=== PATIENT | female | born 1975 | race Caucasian/White ===

== ENCOUNTER → 2017-10-28 | Outpatient (REF) ==
[2017-10-29 10:12] LABS: RUBEOLA IgG ANTIBODY >300.0 AU/mL (Immune >29.9)
== END ==
LOC: M LAB 09:39
DX: Z02.1 Encounter for pre-employment examination (principal)

== ENCOUNTER 2017-12-30 09:22 | Emergency (ER) | payer OTHER, MEDICAID ==
[2017-12-30 10:22] LABS: KETONE, URINE AUTO RFX NEGATIVE (NEGATIVE); LEUKOCYTE ESTERASE UR AUTO RFX NEGATIVE (NEGATIVE); NITRITE, URINE AUTO RFX NEGATIVE (NEGATIVE); RBC, URINE AUTO RFX 0 /HPF (0-3); SPECIFIC GRAVITY UR AUTO RFX 1.004 (1.002-1.035); SQUAM EPITHELIAL CELL UR AURFX 0 /HPF (0-6); WBC, URINE AUTO RFX 0 /HPF (0-3)
[2017-12-30] MEDS: KETOROLAC 30 MG/ML VIAL (J1885) IV (10:22)
[2017-12-30] MEDS: ONDANSETRON 4MG/2ML VIAL (J2405) IV (10:22)
[2017-12-30] MEDS: GI COCKTAIL 50ML BTL(HYOSCYAMINE/MAALOX/LIDOCAINE VISCOUS)(1:3:1) PO (10:22)
[2017-12-30] MEDS: NS 1,000 ML IV (10:23)
[2017-12-30 10:42] LABS: BASO % 0.1 % (0.0-1.0); EOS % 0.1 % (0.0-3.0); HEMATOCRIT 39.5 % (36.0-47.0); HEMOGLOBIN 13.8 g/dl (12.0-15.5); IMMATURE GRANULOCYTE % 0.3 % (0-3.0); LYMPH # 0.8 10^3/uL (1.5-4.5); LYMPH % 11.2 % (24.0-44.0); MEAN CORPUSCULAR HEMOGLOBIN 31.3 pg (27.0-33.0); MEAN CORPUSCULAR HGB CONC 34.9 g/dl (32.0-36.5); MEAN CORPUSCULAR VOLUME 89.6 fl (80.0-96.0); MONO # 0.2 10^3/uL (0.0-0.8); MONO % 2.6 % (0.0-5.0); NEUTROPHILS # 6.2 10^3/uL (1.8-7.7); NEUTROPHILS % 85.7 % (36.0-66.0); PLATELET COUNT, AUTOMATED 224 10^3/uL (150-450); RED BLOOD COUNT 4.41 10^6/uL (4.00-5.40); RED CELL DISTRIBUTION WIDTH 12.2 % (11.5-14.5); WHITE BLOOD COUNT 7.3 10^3/uL (4.0-10.0)
[2017-12-30 11:01] LABS: ALBUMIN 3.6 GM/DL (3.2-5.2); ALBUMIN/GLOBULIN RATIO 0.97 (1.00-1.93); ALKALINE PHOSPHATASE 62 U/L (45-117); ALT/SGPT 13 U/L (12-78); ANION GAP 8 MEQ/L (8-16); AST/SGOT 11 U/L (7-37); BILIRUBIN,DIRECT < 0.1 MG/DL (0.0-0.2); BILIRUBIN,TOTAL 0.4 MG/DL (0.2-1.0); BLOOD UREA NITROGEN 9 MG/DL (7-18); CALCIUM LEVEL 8.5 MG/DL (8.5-10.1); CARBON DIOXIDE LEVEL 25 MEQ/L (21-32); CHLORIDE LEVEL 110 MEQ/L (98-107); CREATININE FOR GFR 0.68 MG/DL (0.55-1.30); GLOMERULAR FILTRATION RATE > 60.0 (>58); GLUCOSE, FASTING 99 MG/DL (70-100); LIPASE 64 U/L (73-393); POTASSIUM SERUM 3.6 MEQ/L (3.5-5.1); SODIUM LEVEL 143 MEQ/L (136-145); TOTAL PROTEIN 7.3 GM/DL (6.4-8.2)
[2017-12-30 11:14] LABS: CONTROL LINE HCG INT CTR LINE PRESENT; HCG, SERUM QUALITATIVE NEGATIVE (NEGATIVE)
== END 2017-12-30 11:35 | disposition home or self-care (01) ==
LOC: M ED 09:22
DX: K29.70 Gastritis, unspecified, without bleeding (principal); A04.8 Other specified bacterial intestinal infections; R51 Headache; Z79.899 Other long term (current) drug therapy; Z79.2 Long term (current) use of antibiotics
CPT/HCPCS: J2405

== ENCOUNTER 2018-01-18 14:14 | Emergency (ER) | payer OTHER ==
[2018-01-18 15:21] LABS: KETONE, URINE AUTO RFX NEGATIVE (NEGATIVE); LEUKOCYTE ESTERASE UR AUTO RFX NEGATIVE (NEGATIVE); MUCUS, URINE RFX SMALL (NEGATIVE); NITRITE, URINE AUTO RFX NEGATIVE (NEGATIVE); RBC, URINE AUTO RFX 0 /HPF (0-3); SPECIFIC GRAVITY UR AUTO RFX 1.016 (1.002-1.035); SQUAM EPITHELIAL CELL UR AURFX 2 /HPF (0-6); WBC, URINE AUTO RFX 0 /HPF (0-3)
[2018-01-18 15:41] LABS: BASO % 0.3 % (0.0-1.0); EOS % 0.6 % (0.0-3.0); HEMATOCRIT 42.4 % (36.0-47.0); HEMOGLOBIN 14.2 g/dl (12.0-15.5); IMMATURE GRANULOCYTE % 0.5 % (0-3.0); LYMPH # 1.9 10^3/uL (1.5-4.5); LYMPH % 29.4 % (24.0-44.0); MEAN CORPUSCULAR HEMOGLOBIN 31.1 pg (27.0-33.0); MEAN CORPUSCULAR HGB CONC 33.5 g/dl (32.0-36.5); MEAN CORPUSCULAR VOLUME 92.8 fl (80.0-96.0); MONO # 0.4 10^3/uL (0.0-0.8); MONO % 6.2 % (0.0-5.0); NEUTROPHILS # 4.2 10^3/uL (1.8-7.7); PLATELET COUNT, AUTOMATED 234 10^3/uL (150-450); RED BLOOD COUNT 4.57 10^6/uL (4.00-5.40); RED CELL DISTRIBUTION WIDTH 12.2 % (11.5-14.5); WHITE BLOOD COUNT 6.6 10^3/uL (4.0-10.0)
[2018-01-18] MEDS: NS 1,000 ML IV (15:47)
[2018-01-18] MEDS: MORPHINE 4 MG/ML 1ML VIAL/SYRINGE (J2270) IV ×2 (15:47→18:09)
[2018-01-18 16:01] LABS: ALBUMIN 3.9 GM/DL (3.2-5.2); ALKALINE PHOSPHATASE 78 U/L (45-117); ALT/SGPT 27 U/L (12-78); ANION GAP 7 MEQ/L (8-16); AST/SGOT 12 U/L (7-37); BILIRUBIN,DIRECT 0.1 MG/DL (0.0-0.2); BILIRUBIN,TOTAL 0.5 MG/DL (0.2-1.0); BLOOD UREA NITROGEN 13 MG/DL (7-18); CALCIUM LEVEL 8.8 MG/DL (8.5-10.1); CARBON DIOXIDE LEVEL 29 MEQ/L (21-32); CHLORIDE LEVEL 106 MEQ/L (98-107); CREATININE FOR GFR 0.67 MG/DL (0.55-1.30); GLOMERULAR FILTRATION RATE > 60.0 (>58); GLUCOSE, FASTING 92 MG/DL (70-100); LIPASE 96 U/L (73-393); POTASSIUM SERUM 4.1 MEQ/L (3.5-5.1); SODIUM LEVEL 142 MEQ/L (136-145); TOTAL PROTEIN 7.8 GM/DL (6.4-8.2)
[2018-01-18] MEDS ORDERED: ISOVUE-370 76% 100ML VIAL (Q9967) As Ordered (16:14)
== END 2018-01-18 19:50 | disposition home or self-care (01) ==
LOC: M ED 14:14
DX: N83.202 Unspecified ovarian cyst, left side (principal)
CPT/HCPCS: J2270

== ENCOUNTER → 2018-01-24 | Outpatient (CLI) | payer OTHER ==
[2018-01-24 18:48] LABS: FREE T4 1.06 NG/DL (0.76-1.46)
[2018-01-26 15:06] LABS: TISSUE TRANSGLUTAMINASE IgA <2 U/mL (0-3)
== END ==
LOC: M LAB 17:09
DX: R19.7 Diarrhea, unspecified (principal)
CPT/HCPCS: 84443

== ENCOUNTER → 2018-01-25 | Outpatient (REF) | payer OTHER | LOC: M LAB REF 09:36 | DX: R19.7 Diarrhea, unspecified (principal) | CPT/HCPCS: 87507 ==

== ENCOUNTER → 2018-02-10 | Outpatient (CLI) | payer OTHER | LOC: M RAD 16:46 | DX: M54.2 Cervicalgia (principal) | CPT/HCPCS: 72052 ==

== ENCOUNTER → 2018-03-14 | Outpatient (CLI) | payer OTHER | LOC: M RAD 12:48 | DX: M54.2 Cervicalgia (principal) | CPT/HCPCS: 72141 ==

== ENCOUNTER → 2018-06-07 | Outpatient (REF) | payer OTHER ==
[2018-06-09 00:29] LABS: H PYLORI STOOL ANTIGEN Negative (Negative)
== END ==
LOC: M LAB REF 13:54
DX: B96.81 Helicobacter pylori [H. pylori] as the cause of diseases classified elsewhere (principal)

== ENCOUNTER 2018-06-11 10:20 | Emergency (ER) | payer OTHER ==
[2018-06-11] MEDS: diazePAM 5 MG TAB PO (10:45)
[2018-06-11] MEDS: KETOROLAC 60 MG/2 ML VIAL (J1885) IM (10:45)
== END 2018-06-11 11:29 | disposition home or self-care (01) ==
LOC: M ED 10:20
DX: G89.29 Other chronic pain (principal); M54.2 Cervicalgia; M62.838 Other muscle spasm
CPT/HCPCS: J1885

== ENCOUNTER → 2018-07-14 | Outpatient (CLI) | payer OTHER ==
[~2018-07-14] MED LIST: AZIT-12; CLAR500T; CYCL10TA PO; METH1TAB40; METR-201; NORCOTAB PO; OMEP20CA3; VITA500T3 PO; ZOFR4TAB14 PO
[2018-07-14 19:00] LABS: INR 0.98; PROTHROMBIN TIME 13.1 SECONDS (12.1-14.4)
[2018-07-14 19:01] LABS: PARTIAL THROMBOPLASTIN TIME 30.5 SECONDS (25.4-37.6)
== END ==
LOC: M LAB 17:53
PROVIDERS: ATTEND Physician Assistant
DX: Z01.818 Encounter for other preprocedural examination (principal)

== ENCOUNTER → 2018-09-04 | Outpatient (CLI) | payer OTHER ==
--- NOTE | 2018-09-04 20:02 | REP ---
Clinical: Pelvic and perineal pain, . Technique: Transabdominal pelvic ultrasound with color Doppler evaluation of the ovaries. Findings: Bladder is collapsed. The patient is noted to be status post hysterectomy. No pelvic mass lesion or free fluid is appreciated. Bilateral ovaries are normal in appearance and vascularity without evidence for torsion. Right ovary measures 3.0 x 1.4 x 1.5 cm ; R I = 0.40 . Left ovary measures 4.9 x 3.5 x 2.6 cm with multiple cysts up to 3.0 cm ; R I = 0.65 . Impression: 1. Prior hysterectomy. 2. Enlarged cystic left ovary. Consider follow-up examination and 4-6 weeks to evaluate for resolution. Electronically Signed by Ruy Coles MD 09/04/2018 07:54 P
== END ==
LOC: M RAD 13:46
PROVIDERS: ATTEND Obstetrics & Gynecology Obstetrics
DX: N83.202 Unspecified ovarian cyst, left side (principal); Z90.710 Acquired absence of both cervix and uterus

== ENCOUNTER → 2018-09-18 | Outpatient (CLI) | payer OTHER ==
[2018-09-18 11:43] LABS: HEMOGLOBIN A1c 5.1 %
== END ==
LOC: M LAB 09:43
PROVIDERS: ATTEND Family Medicine
DX: O24.439 Gestational diabetes mellitus in the puerperium, unspecified control (principal)

== ENCOUNTER → 2018-09-20 | Outpatient (CLI) | payer OTHER ==
--- NOTE | 2018-09-21 03:36 | REP ---
Clinical: Nontoxic goiter. Technique: Real time escoto scale and color evaluation using linear high frequency transducer. Comparison: None. Findings: Thyroid gland is heterogeneous and essentially normal in size. Right lobe measures 4.3 x 1.8 x 1.1 cm without nodule or cyst. Left lobe measures 4.1 x 1.6 x 1.1 cm and includes 2.3 x 1.5 x 1.5 mm hypoechoic nodule in the lower pole. Isthmus measures 3.1 mm in width. Impression: Relatively normal examination. 2.3 mm nonspecific hypoechoic nodule in the left lobe. Electronically Signed by Ruy Coles MD 09/21/2018 03:28 A
== END ==
LOC: M RAD 15:52
PROVIDERS: ATTEND Family Medicine
DX: E04.1 Nontoxic single thyroid nodule (principal)

== ENCOUNTER 2018-11-30 09:24 | Emergency (ER) | payer OTHER ==
[~2018-11-30] VITALS: Ht 160 cm; Wt 72.7 kg
[~2018-11-30 09:24] MED LIST changes: +HYDR-3715 PO; -METR-201; +METR-265; -NORCOTAB PO
[2018-11-30] MEDS ORDERED: TOPI25TA10 PO (10:01)
[2018-11-30] MEDS ORDERED: KETOROLAC 30 MG/ML VIAL (J1885) IV ONE (10:45)
[2018-11-30] MEDS ORDERED: ONDANSETRON 4MG/2ML VIAL (J2405) IV ONE (10:45)
[2018-11-30] MEDS ORDERED: NS 1,000 ML IV ONE (10:45)
[2018-11-30] MEDS ORDERED: METOCLOPRAMIDE INJ 10MG/2ML VIAL (J2765) IV ONE (10:45)
[2018-11-30 12:05] VITALS: BP 103/60
== END 2018-11-30 12:11 | disposition home or self-care (01) ==
LOC: M ED 09:24
DX: R51 Headache (principal); R11.2 Nausea with vomiting, unspecified; T50.905A Adverse effect of unspecified drugs, medicaments and biological substances, initial encounter; J02.9 Acute pharyngitis, unspecified; Z87.891 Personal history of nicotine dependence; Z79.899 Other long term (current) drug therapy
CPT/HCPCS: 83690; 87880; 96374; 96375; 99284; J1885; J2405; J2765

== ENCOUNTER → 2018-12-25 | Outpatient (REF) | payer OTHER ==
[~2018-12-25] MED LIST changes: +TOPI25TA10 PO
[2018-12-25 13:23] LABS: INR 0.95; PROTHROMBIN TIME 12.4 SECONDS (11.8-14.0)
== END ==
LOC: M LABDRAW1 12:05
PROVIDERS: ATTEND Physician Assistant
DX: Z01.812 Encounter for preprocedural laboratory examination (principal)

== ENCOUNTER → 2019-05-18 | Outpatient (CLI) | payer OTHER ==
[~2019-05-18] MED LIST changes: +CYAN500T8 PO; -OMEP20CA3; +OMEP20CA4; -VITA500T3 PO
--- NOTE | 2019-05-18 14:30 | REP ---
MRI cervical spine: 05/18/2019. Indication: Neck pain. Comparison: 03/14/2018. Technique: Multiplanar short and long TR sequences of the cervical spine were performed. Findings: There is mild straightening of the cervical lordosis. No worrisome marrow or cord signal is present. The craniocervical junction is unremarkable. C2/C3, C3/C4 and C4/C5: There is no focal disc herniation or significant spinal canal / neural foraminal narrowing. C5/C6: Diffuse disc bulge is present with mild spinal canal and neural foraminal narrowing. There is a posterior central/right paracentral small annular fissure with associated tiny disc protrusion. C6/C7 and C7/T1: There is no focal disc herniation or significant spinal canal / neural foraminal narrowing. Impression: C5/C6 degenerative sequelae as described without significant spinal canal or neural foraminal narrowing. Small posterior central annular fissure and associated tiny disc herniation. Electronically Signed by Woo Mccall DO 05/18/2019 02:22 P
== END ==
LOC: M PLARAD 11:36
PROVIDERS: ATTEND Physician Assistant
DX: M47.812 Spondylosis without myelopathy or radiculopathy, cervical region (principal); M50.322 Other cervical disc degeneration at C5-C6 level

== ENCOUNTER → 2019-06-18 | Outpatient (CLI) | payer OTHER ==
[~2019-06-18] MED LIST changes: +OMEP-172; -OMEP20CA4
[2019-06-18 10:15] LABS: HEMATOCRIT 40.3 % (36.0-47.0); HEMOGLOBIN 13.4 g/dl (12.0-15.5); MEAN CORPUSCULAR HEMOGLOBIN 30.8 pg (27.0-33.0); MEAN CORPUSCULAR HGB CONC 33.3 g/dl (32.0-36.5); MEAN CORPUSCULAR VOLUME 92.6 fl (80.0-96.0); PLATELET COUNT, AUTOMATED 233 10^3/uL (150-450); RED BLOOD COUNT 4.35 10^6/uL (4.00-5.40); WHITE BLOOD COUNT 5.2 10^3/uL (4.0-10.0)
[2019-06-18 10:43] LABS: ALBUMIN 3.6 GM/DL (3.2-5.2); ALT/SGPT 13 U/L (12-78); BILIRUBIN,TOTAL 0.5 MG/DL (0.2-1.0); BLOOD UREA NITROGEN 15 MG/DL (7-18); CALCIUM LEVEL 8.7 MG/DL (8.5-10.1); CARBON DIOXIDE LEVEL 29 MEQ/L (21-32); CHLORIDE LEVEL 110 MEQ/L (98-107); CHOLESTEROL LEVEL 188 MG/DL (<200); CHOLESTEROL RISK RATIO 2.848 (<5); CREATININE FOR GFR 0.74 MG/DL (0.55-1.30); FREE T3 2.4 PG/ML (2.2-4.0); FREE T4 1.05 NG/DL (0.76-1.46); GLOMERULAR FILTRATION RATE > 60.0 (>58); GLUCOSE, FASTING 88 MG/DL (70-100); HDL CHOLESTEROL 66 MG/DL (>40); LDL CHOLESTEROL 110 MG/DL (<100); NON-HDL-C 122 MG/DL; POTASSIUM SERUM 4.3 MEQ/L (3.5-5.1); SODIUM LEVEL 144 MEQ/L (136-145); TRIGLYCERIDES LEVEL 58 MG/DL (<150)
[2019-06-18 10:55] LABS: VITAMIN B12 LEVEL 818 PG/ML
[2019-06-18 10:56] LABS: FOLATE 9.1 NG/ML
== END ==
LOC: M LAB 09:17
PROVIDERS: ATTEND Family Medicine
DX: E04.1 Nontoxic single thyroid nodule (principal); E66.3 Overweight; E53.8 Deficiency of other specified B group vitamins

== ENCOUNTER → 2019-08-02 | Outpatient (REF) | payer OTHER ==
[~2019-08-02] MED LIST changes: -OMEP-172; +OMEP1CAP73
[2019-08-02 16:06] LABS: PLATELET COUNT, AUTOMATED 233 10^3/uL (150-450)
[2019-08-02 16:17] LABS: INR 1.09; PROTHROMBIN TIME 13.9 SECONDS (11.8-14.0)
[2019-08-02 16:18] LABS: PARTIAL THROMBOPLASTIN TIME 32.8 SECONDS (25.0-38.4)
== END ==
LOC: M LABDRAW1 15:38
PROVIDERS: ATTEND Physician Assistant
DX: Z01.812 Encounter for preprocedural laboratory examination (principal); M47.812 Spondylosis without myelopathy or radiculopathy, cervical region

== ENCOUNTER → 2020-01-08 | Outpatient (CLI) | payer OTHER ==
[~2020-01-08] MED LIST changes: +B-122500 PO; -CLAR500T; +CLAR500T97; +CYCL-707 PO; -CYCL10TA PO; +DOCU-129 PO
[2020-01-08 11:17] LABS: PLATELET COUNT, AUTOMATED 215 10^3/uL (150-450)
[2020-01-08 11:26] LABS: COLLAGEN EPINEPHRINE 84 SECONDS (74-162)
[2020-01-08 11:33] LABS: INR 1.02; PROTHROMBIN TIME 13.1 SECONDS (11.8-14.0)
== END ==
LOC: M LAB 10:22
PROVIDERS: ATTEND Physician Assistant
DX: M47.812 Spondylosis without myelopathy or radiculopathy, cervical region (principal)

== ENCOUNTER → 2020-04-25 | Outpatient (CLI) | payer OTHER ==
[~2020-04-25] MED LIST changes: +PROHANCE 279.3MG/ML 15ML VIAL As Ordered ONE
--- NOTE | 2020-04-25 19:43 | REPVR ---
PROCEDURE INFORMATION: Exam: MR Cervical Spine Without and With Contrast Exam date and time: 04/25/2020 5:30 PM Age: 44 years old Clinical indication: Neck pain; Additional info: Oth cervical disc displacement TECHNIQUE: Imaging protocol: Multiplanar magnetic resonance images of the cervical spine without and with intravenous contrast. Contrast material: PROHANCE; Contrast volume: 15 ml; Contrast route: INTRAVENOUS (IV); COMPARISON: MRI-Spine,Cervical without con 05/18/2019 11:55 AM FINDINGS: Vertebrae: Unremarkable. The cervical spine alignment shows mild loss of lordosis and straightening of the cervical spine above C6. This is unchanged since the previous MRI cervical spine study from 05/18/2019. Spinal cord: Normal signal. No cord compression. C2-C3: No significant disc disease. No significant spinal stenosis. C3-C4: No significant disc disease. No significant spinal stenosis. C4-C5: No significant disc disease. No significant spinal stenosis. C5-C6: Minimal degenerative posterior disc bulging with a small annular tear seen in the posterior disc annulus on frame 8 of series 501, unchanged since the previous MRI cervical spine study from 05/18/2019. No significant spinal stenosis. C6-C7: No significant disc disease. No significant spinal stenosis. Tiny normal variant perineural cysts are seen in the neural foramina bilaterally. C7-T1: No significant disc disease. No significant spinal stenosis. A small normal variant perineural cyst is seen in the lateral left neural foramen on frame 4 of series 601. Vertebral arteries: The expected flow voids in the vertebral arteries are present. Soft tissues: Unremarkable prevertebral and posterior paraspinal soft tissues pre- and post IV contrast. IMPRESSION: 1. No significant interval change since the previous MRI cervical spine study from 05/18/2019. 2. Minimal degenerative posterior disc bulging at C5/C6 with a small annular tear seen in the posterior midline disc on frame 8 of series 501, unchanged since the previous MRI cervical spine study from 05/18/2019. No significant spinal canal or neuroforaminal stenosis. 3. The cervical spine alignment shows mild loss of lordosis and straightening of the cervical spine above C6. This is unchanged since the previous MRI cervical spine study from 05/18/2019. The loss of lordosis may simply be a technical artifact due to flexed-neck positioning of the patient in the MRI scanner or the presence of a cervical collar, but more likely reflects chronic pain and/or muscle spasm related to chronic degenerative change or remote whiplash injury and/or ligamentous laxity. A plain film radiographic flexion-extension cervical spine series might be of added diagnostic benefit, if there is any clinical suspicion for ligamentous instability at C5/C6. Impression. Electronically signed by: Sanchez Ma On 04/25/2020 19:44:02 PM
== END ==
LOC: M RAD 16:23
PROVIDERS: ATTEND Physician Assistant
DX: M50.23 Other cervical disc displacement, cervicothoracic region (principal)
CPT/HCPCS: 72156; A9576

== ENCOUNTER 2020-10-10 10:37 | Emergency (ER) | payer OTHER ==
[~2020-10-10] VITALS: Ht 160 cm; Wt 70.9 kg
[~2020-10-10 10:37] MED LIST changes: +CYAN500T14 PO; -CYAN500T8 PO; -DOCU-129 PO; +DOCU-153 PO; +METH-1164; -METH1TAB40; -PROHANCE 279.3MG/ML 15ML VIAL As Ordered ONE
[2020-10-10] MEDS ORDERED: ACET-683 PO (11:01)
[2020-10-10] MEDS ORDERED: ESTR1TAB (11:01)
[2020-10-10] MEDS ORDERED: NS 1,000 ML IV ONE (11:25)
[2020-10-10] MEDS ORDERED: diphenhydrAMINE 50MG/ML VIAL (J1200) IV ONE (11:25)
[2020-10-10] MEDS ORDERED: KETOROLAC 30 MG/ML 1ML VIAL IV ONE (11:25)
[2020-10-10] MEDS ORDERED: ONDANSETRON 4MG/2ML VIAL IV ONE (11:25)
[2020-10-10 11:58] LABS: BASO % 0.4 % (0.0-1.0); EOS % 0.6 % (0.0-3.0); HEMOGLOBIN 13.5 g/dl (12.0-15.5); LYMPH # 1.1 10^3/uL (1.5-5.0); LYMPH % 21.7 % (24.0-44.0); MEAN CORPUSCULAR HEMOGLOBIN 30.8 pg (27.0-33.0); MEAN CORPUSCULAR HGB CONC 32.9 g/dl (32.0-36.5); MEAN CORPUSCULAR VOLUME 93.4 fl (80.0-96.0); MONO # 0.3 10^3/uL (0.0-0.8); MONO % 6.5 % (2.0-8.0); NEUTROPHILS # 3.4 10^3/uL (1.5-8.5); NEUTROPHILS % 70.4 % (36.0-66.0); PLATELET COUNT, AUTOMATED 212 10^3/uL (150-450); RED BLOOD COUNT 4.39 10^6/uL (4.00-5.40); WHITE BLOOD COUNT 4.9 10^3/uL (4.0-10.0)
[2020-10-10 12:22] LABS: ALBUMIN 4.1 GM/DL (3.2-5.2); ALT/SGPT 19 U/L (12-78); BILIRUBIN,TOTAL 0.6 MG/DL (0.2-1.0); BLOOD UREA NITROGEN 15 MG/DL (7-18); CALCIUM LEVEL 9.2 MG/DL (8.5-10.1); CARBON DIOXIDE LEVEL 28 MEQ/L (21-32); CHLORIDE LEVEL 106 MEQ/L (98-107); CREATININE FOR GFR 0.61 MG/DL (0.55-1.30); GLOMERULAR FILTRATION RATE > 60.0 (>58); GLUCOSE, FASTING 95 MG/DL (70-100); MAGNESIUM LEVEL 2.2 MG/DL (1.8-2.4); POTASSIUM SERUM 4.1 MEQ/L (3.5-5.1); SODIUM LEVEL 140 MEQ/L (136-145); TOTAL PROTEIN 7.2 GM/DL (6.4-8.2)
[2020-10-10 12:34] LABS: ERYTHROCYTE SEDIMENTATION RATE 13 mm/hr (0-20)
[2020-10-10] MEDS ORDERED: methocarbamoL 750 MG TAB PO ONE (13:30)
[2020-10-10 14:54] VITALS: BP 107/52
[2020-10-10] MEDS ORDERED: ROBA750T4 PO (14:54)
== END 2020-10-10 15:15 | disposition home or self-care (01) ==
LOC: M ED 10:37
DX: G44.209 Tension-type headache, unspecified, not intractable (principal); F41.9 Anxiety disorder, unspecified; K21.9 Gastro-esophageal reflux disease without esophagitis; M50.30 Other cervical disc degeneration, unspecified cervical region; Z79.899 Other long term (current) drug therapy; Z79.818 Long term (current) use of other agents affecting estrogen receptors and estrogen levels; Z88.1 Allergy status to other antibiotic agents; Z88.8 Allergy status to other drugs, medicaments and biological substances
CPT/HCPCS: 80053; 81001; 83735; 85025; 85652; 86140; 96361; 96374; 96375; 99284; J1200; J1885; J2405